=== PATIENT | male | born 1955 | race Caucasian/White ===

== ENCOUNTER 2017-04-27 19:09 | Emergency (ER) | payer OTHER ==
[~2017-04-27] VITALS: Ht 167.6 cm; Wt 63.5 kg
--- NOTE | 2017-04-27 19:22 | ED DYSPNEA/ASTHMA COMPLAINT ---
History of Present Illness General Chief Complaint: Upper Respiratory Sx/Fever Stated Complaint: URI Source: patient Exam Limitations: no limitations Vital Signs & Intake/Output Vital Signs & Intake/Output Vital Signs Date Time Temp Pulse Resp B/P B/P Pulse O2 O2 Flow FiO2 Mean Ox Delivery Rate 04/27 2045 66 18 112/54 97 Nasal 3.0L Cannula 04/27 1940 Room Air 04/27 1914 96.9 67 18 106/51 96 Nasal 3.0L Cannula Allergies Coded Allergies: Penicillins (RASH 04/27/17) oxycodone (From OXYCONTIN) (UNKNOWN 04/27/17) sulfamethoxazole (From BACTRIM) (ANAPHYLAXIS 04/27/17) trimethoprim (From BACTRIM) (ANAPHYLAXIS 04/27/17) vancomycin (ANAPHYLAXIS 04/27/17) Triage Note: PT [facility]IBA FROM [facility] C/O SOB, UPPER BACK PAIN AND CP SINCE APPROX 1729. NURSING FACILITY ADMINISTERED 3 SL NITRO AND A DUONEB WITH MINIMAL RELIEF. PT ARRIVES SATTING 96% ON 3L NC (BASELINE 2L). PT HAS HX CHF, COPD, DE'S. AT BEDSIDE TO [facility] PT Triage Nurses Notes Reviewed? yes Onset: Gradual Duration: day(s): Timing: recent history Severity: moderate Activities at Onset: none Prior Episodes/Possible Cause: occasional episodes Modifying Factors: Improves With: rest. Associated Symptoms: cough, wheezing HPI: 62 yo gentleman h/o copd, cad, s/p stents x [address] [facility] 5 days ago for copd exacerbation, presents with dyspnea, chest discomfort, increased work of breathing that started today. 911 was called. They found him breathless, wheezing, with substernal chest pressure. He received nitro spray x 3 with resolution of his chest discomfort. He notes that he has persistent lower extremity swelling, but has not been getting worse. He notes no fever, chills, significant sputum. He notes, "I've been wheezing... it feels like copd." Past History Travel History Traveled to [place] past 21 day No Medical History Any Pertinent Medical History? see below for history Cardiovascular: angina, CAD, CHF, hypertension, hyperlipidemia Surgical History Surgical History: CABG Family History Hx Contributory? No Review of Systems Review of Systems Constitutional: Reports: no symptoms. EENTM: Reports: no symptoms. Respiratory: Reports: no symptoms. Cardiovascular: Reports: no symptoms. GI: Reports: no symptoms. Genitourinary: Reports: no symptoms. Musculoskeletal: Reports: no symptoms. Skin: Reports: no symptoms. Neurological/Psychological: Reports: no symptoms. Hematologic/Endocrine: Reports: no symptoms. Immunologic/Allergic: Reports: no symptoms. All Other Systems: Reviewed and Negative Physical Exam Physical Exam General Appearance: well developed/nourished, mild distress, moderate distress Head: atraumatic, normal appearance Eyes: Bilateral: normal appearance. Ears, Nose, Throat: normal pharynx, normal ENT inspection Neck: normal inspection Respiratory: chest non-tender, wheezing, respiratory distress Cardiovascular: regular rate/rhythm Gastrointestinal: normal bowel sounds Extremities: normal inspection, 2-3+pedal edema Neurologic/Psych: no motor/sensory deficits, awake, alert, oriented x 3 Skin: intact, normal color, warm/dry Core Measures ACS in differential dx? Yes ASA ordered for poss ACS? Yes-ordered Severe Sepsis Present: No Septic Shock Present: No Progress Differential Diagnosis: asthma, bronchitis, CHF, COPD, pneumonia Plan of Care: Orders Procedure Date/time Status BLOOD CULTURE 04/27 1955 Active BLOOD CULTURE 04/27 1953 Active TROPONIN LEVEL 04/27 1922 Complete PARTIAL THROMBOPLASTIN TIME 04/27 1922 Complete PROTHROMBIN TIME 04/27 1922 Complete COMPREHENSIVE METABOLIC PANEL 04/27 1922 Complete CBC WITHOUT DIFFERENTIAL 04/27 1922 Complete B-TYPE NATRIURETIC PEP (BNP) 04/27 1922 Complete EKG 04/27 1916 Active Laboratory Tests 04/27/171951: Anion Gap 16, Estimated GFR > 60, BUN/Creatinine Ratio 13.3, Glucose 100 H, Calcium 8.7, Total Bilirubin 0.6, AST 16 L, ALT 42, Alkaline Phosphatase 94, Troponin I < 0.01, Uoe-Q-Eyppmrvvovc Pept 643 H, Total Protein 6.2 L, Albumin 3.4 L, Globulin 2.8, Albumin/Globulin Ratio 1.2, PT 12.9 H, INR 1.23 H, APTT 36, CBC w Diff NO MAN DIFF REQ, RBC 3.43 L, MCV 82.8, MCH 27.4, RDW 18.5 H, MPV 7.3 L, Gran % 71.3, Lymphocytes % 12.8 L, Monocytes % 12.4 H, Eosinophils % 3.1, Basophils % 0.4, Absolute Granulocytes 5.1, Absolute Lymphocytes 0.9 L, Absolute Monocytes 0.9 H, Absolute Eosinophils 0.2, Absolute Basophils 0, PUBS MCHC 33.0 Microbiology 04/27 2017 BLOOD: Blood Culture - RECD 04/27 1952 BLOOD: Blood Culture - RECD Diagnostic Imaging: Viewed by Me: Radiology Read. Discussed w/RAD: Radiology Read. CXR Impression: patchy airspace rll ... c/w pneumonia Initial ED EKG: normal axis, normal intervals, normal p-waves, normal QRS complex, normal sinus rhythm Comments: PATIENT: MARIBEL PAGAN PRESENT AGE: 62 PATIENT ACCOUNT NO: [id number] : 54 LOCATION: [facility] ORDERING PHYSICIAN: ABBY COWAN MD SERVICE DATE: 04/27/17 EXAM TYPE: RAD - XRY-PORTABLE CHEST XRAY EXAMINATION: XR PORTABLE CHEST CLINICAL INFORMATION: Dyspnea. COMPARISON: None TECHNIQUE: Portable frontal view of the chest was obtained. FINDINGS: There is airspace disease and a small layering effusion in the right lower lobe. There are increased interstitial markings within both lungs. No airspace disease is noted in the left lung. The cardiac silhouette is mildly prominent. Sternotomy wires are in place. No acute osseous abnormality is seen. IMPRESSION: Patchy airspace opacity in the right lower lobe with a small layering pleural effusion. Findings may reflect pneumonia, aspiration, or asymmetric early developing airspace edema. Prominence of reticular markings in both lungs is nonspecific and may either be chronic or represent developing interstitial pulmonary edema. DICTATED BY: SMITH LESLIE MD DATE/TIME DICTATED:04/27/172131 COOKING INSTRUCTOR:HAMILTON DATE/TIME TRANSCRIBED:04/27/172131 CONFIDENTIAL, DO NOT COPY WITHOUT APPROPRIATE AUTHORIZATION. <Electronically signed in Other Vendor System> SIGNED BY: SMITH LESLIE MD [id number] Departure Departure Disposition: HOME OR SELF CARE Condition: Stable Clinical Impression Primary Impression: COPD exacerbation Secondary Impressions: Pneumonia, Unstable angina Departure Forms: Customer Survey General Discharge Information Comments 04/27/17, 22:20... discussed with dr. salgado... pt recently discharged from [facility] and receives all of his care there.... pt convalescing at SNF. Discussed with dr. Galvan, [facility] generalist, who accepts patient. Critical Care Note Critical Care Note Critical Care Time: 30-74 min
[2017-04-27 20:11] LABS: ABSOLUTE BASOPHIL COUNT 0 /CUMM (0.0-0.2); ABSOLUTE EOSINOPHIL COUNT 0.2 /CUMM (0.0-0.7); ABSOLUTE GRANULOCYTE CT 5.1 /CUMM (1.4-6.5); ABSOLUTE LYMPH COUNT 0.9 /CUMM (1.2-3.4); ABSOLUTE MONOCYTE COUNT 0.9 /CUMM (0.10-0.60); BASOPHIL % 0.4 % (0.0-2.0); EOSINOPHIL % 3.1 % (0-5); GRANULOCYTE % 71.3 % (42.2-75.2); HEMATOCRIT 28.4 % (42-52); MEAN CORPUSCULAR HGB 27.4 PG (27.0-31.0); MEAN CORPUSCULAR VOLUME 82.8 FL (80.0-94.0); MEAN PLATELET VOLUME 7.3 FL (7.4-10.4); PLATELET COUNT 336 /CUMM (130-400); RBC DISTRIBUTION WIDTH 18.5 % (11.5-14.5); RED BLOOD CELL CT 3.43 /CUMM (4.70-6.10); WHITE BLOOD CELL COUNT 7.1 /CUMM (4.8-10.8)
[2017-04-27 20:19] LABS: PT 12.9 SEC (9.4-12.5)
[2017-04-27 20:20] LABS: PTT 36 SEC (25-37)
[2017-04-27 20:45] VITALS: BP 112/54
--- NOTE | 2017-04-27 21:37 | RADIOLOGY REPORT ---
EXAMINATION: XR PORTABLE CHEST CLINICAL INFORMATION: Dyspnea. COMPARISON: None TECHNIQUE: Portable frontal view of the chest was obtained. FINDINGS: There is airspace disease and a small layering effusion in the right lower lobe. There are increased interstitial markings within both lungs. No airspace disease is noted in the left lung. The cardiac silhouette is mildly prominent. Sternotomy wires are in place. No acute osseous abnormality is seen. IMPRESSION: Patchy airspace opacity in the right lower lobe with a small layering pleural effusion. Findings may reflect pneumonia, aspiration, or asymmetric early developing airspace edema. Prominence of reticular markings in both lungs is nonspecific and may either be chronic or represent developing interstitial pulmonary edema.
== END 2017-04-27 23:32 | disposition short-term general hospital (02) ==
LOC: ERH 19:09
PROVIDERS: Pediatrics
DX: J44.1 Chronic obstructive pulmonary disease with (acute) exacerbation (principal); J18.9 Pneumonia, unspecified organism; I20.0 Unstable angina; R07.89 Other chest pain
CPT/HCPCS: 1263; 87040; 93005; 93010; 96374; 96375; J0696; J2930